=== PATIENT | male | born 1985 | race Caucasian/White ===

== ENCOUNTER 2018-07-07 10:43 | Outpatient (CLI) | payer BC ==
--- NOTE | 2018-07-07 12:20 | ULT ---
ULTRASOUND ABDOMEN LIMITED: (RIGHT UPPER QUADRANT) DATE: 07/07/18 HISTORY: ICD-10: R79.89, elevated LFTs in 32-year-old male. COMPARISON: None available. FINDINGS: Gallbladder: Normal mural thickness. No calculus or pericholecystic fluid. Common duct: 4 mm. Liver: Diffusely increased parenchymal echogenicity with some signal dropout in the deep last, prob ably representing fatty liver. There is a discrete approximately 4 x 2 x 3 cm heterogeneously hypoech oic focal lesion close to the liver capsule. It is labeled as being in the right lobe of the liver, b ut it is difficult to determine absolutely whether it is in the right lobe or left lobe based on the static images. Pancreas: No abnormality identified. Right kidney: No hydronephrosis. IMPRESSION: 1. Heterogeneously hypoechoic small hepatic mass. Recommend further evaluation with dedicated multip hase CT of the abdomen with and without contrast, liver mass protocol. 2. Probable hepatic steatosis. SHERMAN Mcnair POS: [facility]
== END 2018-07-07 10:44 | disposition home or self-care (01) ==
LOC: BICULT 10:43
PROVIDERS: ATTEND Family Medicine
DX: R79.89 Other specified abnormal findings of blood chemistry (principal); R16.0 Hepatomegaly, not elsewhere classified
CPT/HCPCS: 76705

== ENCOUNTER 2018-08-24 13:48 | Outpatient (CLI) | payer BC ==
--- NOTE | 2018-08-24 15:51 | MRI ---
MRI LEFT SHOULDER PERFORMED WITHOUT CONTRAST ENHANCEMENT: HISTORY: Left shoulder pain. History of previous shoulder dislocation. FINDINGS: The AC joint is fairly unremarkable. The acromion is laterally downsloping. The supraspinatus as well as infraspinatus tendons are intact. The subscapularis muscle and tendon are intact, and the biceps tendon is in normal position, within t he bicipital groove. There is a Hill-Sachs type deformity to the humeral head. The glenoid does maintain a fairly normal shape. There is some increased signal change in the anterior-inferior labrum. This is difficult to assess due to the lack of joint fluid in this case, but on the sagittal images, findings are suspicio us for anterior-inferior labral injury. IMPRESSION: Limited assessment of the labrum in this case. There is a Hill-Sachs type deformity to the humeral h ead and an indistinct appearance to the anterior-inferior labrum. I suspect this is related to a com bination of previous injury and scar. MR arthrography would be of more benefit in better assessing t his finding. POS: [facility]
== END 2018-08-24 13:49 | disposition home or self-care (01) ==
LOC: BICMRI 13:48
PROVIDERS: ATTEND Family Medicine
DX: M25.512 Pain in left shoulder (principal); M21.922 Unspecified acquired deformity of left upper arm

== ENCOUNTER 2018-09-09 10:03 | Outpatient (CLI) | payer BC ==
[2018-09-09] MEDS ORDERED: Gadobenate Dimeglumine 529 MG/ML (10ML VIAL) ONE (12:00)
[2018-09-09] MEDS ORDERED: Lidocaine 1% PF 5 ML VIAL ONE (12:00)
[2018-09-09] MEDS ORDERED: EPINEPHrine 1 MG/ML AMP ONE (12:00)
[2018-09-09] MEDS ORDERED: Iopamidol 300 61% 30 ML VIAL ONE (12:00)
--- NOTE | 2018-09-09 12:05 | RAD ---
LEFT SHOULDER ARTHROGRAM: Clinical history: Chronic left shoulder instability. History of remote injury. PROCEDURE: Informed consent was obtained. The patient was escorted to the procedural suite. The patient was plac ed in the supine position subsequent to lead business analyst imaging. The left shoulder was prepped and draped in st andard sterile fashion and topical anesthesia was achieved with buffered 1% Lidocaine. Subsequently u sing a 22 gauge needle uneventful access of the left shoulder joint was obtained and confirmed with a small volume of radiopaque contrast. Afterwards, 9 cc contrast cocktail containing gadolinium, radio paque contrast, Lidocaine, saline and epinephrine was instilled into the left shoulder joint under re al-time fluoroscopy. Imaging was stored for documentation. Needle was removed. No procedural complica tion was present. IMPRESSION: Successful left shoulder arthrogram. Patient was transferred to MR to undergo MR imaging. Reference s cj report for details. POS: [facility]
--- NOTE | 2018-09-09 13:21 | MRI ---
MR ARTHROGRAM LEFT SHOULDER: 09/09/2018 PROVIDED CLINICAL HISTORY: Left shoulder pain. COMPARISON: 08/24/2018 FINDINGS: A large Hill-Sachs defect is redemonstrated without subjacent marrow edema. The components of the ro tator cuff appear intact. The longhead biceps tendon appears intact and normally located. There is a [place] complex noted with iatrogenic increased signal intensity within the middle glenohum eral ligament and subscapularis tendon. There is absent labral tissue seen at the anterior-inferior aspects of the glenoid labrum, extending to involve the labrum to about the 6 o'clock position. Ther e is a thickened appearance to the anterior aspect of the anterior band of the inferior glenohumeral ligament, presumably reflecting displaced and scarred labral tissue. The remainder of the glenoid la nat appears normal. No focal glenohumeral articular cartilage defect is apparent. Glenoid bone los s is not definitely seen. No focal concerning regional marrow or muscular signal abnormality is evident. Alignment appears sudha tomic. IMPRESSION: 1. Large Hill-Sachs defect involving the humeral head. 2. Absent anterior-inferior and inferior glenoid labral tissue with a thickened appearance to the an terior aspects of the anterior band of the inferior glenohumeral ligament, likely reflecting displace d and scarred labral tissue. POS: [facility]
== END 2018-09-09 10:04 | disposition home or self-care (01) ==
LOC: RAD 10:03
PROVIDERS: ATTEND Orthopaedic Surgery
DX: M25.512 Pain in left shoulder (principal)
CPT/HCPCS: 23350; J0171; J2001; J7050; Q9967

== ENCOUNTER 2018-10-08 05:59 | Day surgery (SDC) | payer BC ==
[2018-10-06 11:25] VITALS: BMI 34.8
[2018-10-08] MEDS ORDERED: ceFAZolin Sodium 2 GM/100 ML BAG ONE (06:12)
[2018-10-08] MEDS ORDERED: Midazolam HCl 2 mg/2 ml Vial ONE (06:29)
[2018-10-08] MEDS ORDERED: Lidocaine 1% (PF) 30 ML VIAL ONE (06:29)
[2018-10-08] MEDS ORDERED: Fentanyl 100 MCG/2 ML VIAL ONE (06:29)
[2018-10-08] MEDS ORDERED: Fentanyl 250 MCG/5 ML VIAL ONE (07:02)
[2018-10-08] MEDS ORDERED: Zolpidem Tartrate 5 MG TAB PO PRN (07:09)
[2018-10-08] MEDS ORDERED: traMADol HCl 50 MG TAB PO PRN ×2 (07:09)
[2018-10-08] MEDS ORDERED: Ropivacaine 0.2% 550 ML 550 ML NERVE BLCK SCH (07:09)
[2018-10-08] MEDS ORDERED: Ondansetron PF 4 MG/2 ML Vial IVP PRN (07:09)
[2018-10-08] MEDS ORDERED: Promethazine HCl 25 MG/ML VIAL IM PRN (07:09)
[2018-10-08] MEDS ORDERED: Fentanyl 100 MCG/2 ML VIAL IV PRN (07:10)
[2018-10-08] MEDS ORDERED: Ketorolac Tromethamine 30 MG/ML VIAL IVP SCH (12:00)
[2018-10-08] MEDS ORDERED: Ropivacaine 0.5% HCl/PF (150 MG/30 ML VIAL) ONE (12:14)
--- NOTE | 2018-10-08 12:23 | OP ---
DATE OF PROCEDURE: 10/08/2018 PREOPERATIVE DIAGNOSES: Left shoulder recurrent dislocation with; 1. Hill-Sachs deformity. 2. Bankart defect, less than 20%. POSTOPERATIVE DIAGNOSES: Left shoulder recurrent dislocation with; 1. Hill-Sachs deformity. 2. Bankart defect, less than 20%. PROCEDURE PERFORMED: Left open Bankart repair. ASIC ENGINEER: Tej Das MD. ANESTHESIA: Dr. Perez. The patient received a general endotracheal intubation with interscalene block. ESTIMATED BLOOD LOSS: 100 mL. TOURNIQUET TIME: None. ANTIBIOTICS: Ancef 2 g. IMPLANTS: Four 3 x 14 mm BioComposite suture tacks. COMPLICATIONS: None. HISTORY OF PRESENT ILLNESS: Jasson is a 32-year-old male, who presented to me with a history of dislocation seven years ago, did not seek medical care, had a second dislocation, third had multiple since that time. Rhe patient is right-hand dominant. He has multiple history of dislocations. He had an MRI evidence of Hill-Sachs deformity and Bankart lesion with recurrent instability with less than 10% bone loss. I discussed with the patient, the risks and benefits of open Bankart to include pain, scar, bleeding, infection, damage to vital structures, decreased range of motion and strength, nonunion, malunion, loss of life or limb. The patient understood the risks and benefits and elected to proceed. DESCRIPTION OF PROCEDURE: A time-out was performed designating the patient's left lower extremity as the operative site. The patient was placed in beach chair position with everything well positioned. I made an incision in the axillary fold in line with the axilla over the coracoid, vertical down through skin, came down obliquely and found the deltopectoral interval, came down and found the conjoined, under the deltoid, placed our Cobra retractors, came down to the subscap, took and peeled the subscap off the patient's capsule even little bit of muscle medially doing kind of upside down 7 coming down and peeling back the patient's capsule to expose it. We then made an vertical incision more medially and came down the patient's shoulder. We used a small osteotome and a curette to clean great bleeding bone along the patient's glenoid and we placed four suture tacks and passed those in horizontal mattress suture fashion through our capsule, which we had teased off, tied those knots and cut them from inferiorly to superiorly. We placed #1 Ethibond with W-stitches through the capsule, which we sewed back to the capsule, kind of imbricating itself moving from inferior to superior, trying to remove the capsule superiorly. We passed five total sutures. We then had three sutures in the patient's subscapularis, which we did in similar fashion with W-stitch, passing through with horizontal mattress and the capsule and W-stitch in the subscap. We closed those. We then did a running #1 Ethibond to close the entire layer, we placed one more running Ethibond. We then ensured we had a good capsule. This was closed with the subscapularis. We then washed, closed the deltopectoral interval with 0 Vicryl, 2-0, and skin toro. The patient will be sent home if his pain is controlled, then he will be sent home with Zofran and hydrocodone for nausea from his previous pain medications. The patient will follow up with me in 2 [address] dressing in place for 48 hours, began elbow, wrist, and hand motion. Job ID: [id number] [facility]
[2018-10-08] MEDS ORDERED: Rocuronium Bromide 10 MG/ML (10ML VIAL) ONE (12:53)
[2018-10-08] MEDS ORDERED: Ketorolac Tromethamine 30 MG/ML VIAL ONE (12:53)
[2018-10-08] MEDS ORDERED: Dexamethasone 20 MG/5 ML VIAL ONE (12:53)
[2018-10-08] MEDS ORDERED: PROPOFOL 200 MG/20 ML VIAL ONE (12:53)
[2018-10-08] MEDS ORDERED: Ondansetron PF 4 MG/2 ML Vial ONE (12:53)
== END 2018-10-08 12:10 | disposition home or self-care (01) ==
LOC: SDC 05:59
PROVIDERS: ATTEND Orthopaedic Surgery
PROC: 0RQK0ZZ Repair Left Shoulder Joint, Open Approach (ICD-10-PCS; principal; 2018-10-08)
DX: M24.412 Recurrent dislocation, left shoulder (principal); M25.312 Other instability, left shoulder; M75.82 Other shoulder lesions, left shoulder; S43.492A Other sprain of left shoulder joint, initial encounter; F41.8 Other specified anxiety disorders; E78.00 Pure hypercholesterolemia, unspecified; F90.0 Attention-deficit hyperactivity disorder, predominantly inattentive type; G40.909 Epilepsy, unspecified, not intractable, without status epilepticus; Z79.899 Other long term (current) drug therapy; Z88.5 Allergy status to narcotic agent
CPT/HCPCS: A4306; C1713; J0690; J1100; J1885; J2001; J2250; J2405; J2704; J2795; J3010

== ENCOUNTER 2018-11-27 10:38 | Outpatient (CLI) | payer BC ==
--- NOTE | 2018-11-27 13:20 | MRI ---
MRI ABDOMEN WITH AND WITHOUT IV CONTRAST: HISTORY: Lesion of liver. Abnormal ultrasound of 07/07/2018. CORRELATION: Right upper quadrant ultrasound from 07/07/2018. FINDINGS: There is signal drop-out in the liver on the outer-phase images, consistent with fatty infiltration. There is an approximately 4 cm mass in the anterior aspect of the right lobe of the liver, with low T1 and high T2 signal and post contrast enhancement demonstrating centripetal filling. No gallstones are seen. The spleen measures approximately 15 cm in length. The pancreas, adrenal glands, and kid neys are normal. No free fluid or lymphadenopathy is seen. The bone marrow signal is normal. There is no evidence of aneurysmal dilatation of the abdominal aorta. IMPRESSION: 1. Fatty liver. 2. Splenomegaly. 3. Liver hemangioma. POS: [facility]
[2018-11-27] MEDS ORDERED: Gadobenate Dimeglumine 529 MG/1 ML (20ML VIAL) ONE (16:48)
== END 2018-11-27 10:39 | disposition home or self-care (01) ==
LOC: BICMRI 10:38
PROVIDERS: ATTEND Internal Medicine
DX: K76.89 Other specified diseases of liver (principal); K76.0 Fatty (change of) liver, not elsewhere classified; R16.1 Splenomegaly, not elsewhere classified; D18.03 Hemangioma of intra-abdominal structures
CPT/HCPCS: 74183; A9577